=== PATIENT | male | born 1965 | race Caucasian/White ===

== ENCOUNTER 2022-12-15 04:24 | Day surgery (SDC) | payer OTHER ==
[2022-12-12 14:33] VITALS: BMI 35.2
[2022-12-15 09:59] VITALS: TEMP 97.5
[2022-12-15 10:28] VITALS: BP 103/57; PULSE 49; RESP 16
== END 2022-12-15 10:30 | disposition home or self-care (01) ==
LOC: JASU-ENDO 04:24
PROVIDERS: ATTEND Internal Medicine Gastroenterology
PROC: 0DBH8ZX Excision of Cecum, Via Natural or Artificial Opening Endoscopic, Diagnostic (ICD-10-PCS; principal; 2022-12-15 10:30)
DX: Z12.11 Encounter for screening for malignant neoplasm of colon (principal); D12.0 Benign neoplasm of cecum
CPT/HCPCS: 88305-TC